=== PATIENT | female | born 1950 | race Caucasian/White ===

== ENCOUNTER 2022-02-05 09:49 | Emergency (ER) | payer MEDICARE, SELFPAY ==
[2022-02-05] VITALS (16 sets, daily range): BP systolic 127–152; BP diastolic 60–85; PULSE 89–99; RESP 17; TEMP 37.4; O2SAT 91–98; BMI 25.8
--- NOTE | 2022-02-05 10:03 | DI.RAD.S_ITS ---
PROCEDURE: XR CHEST 1V INDICATIONS: chest pain TECHNIQUE: One view of the chest was acquired. COMPARISON: [facility], CT, PE STUDY (CTA CHEST), 11/08/2016, 17:54. [facility], CR, CHEST 2 VIEW, 11/08/2016, 17:17. FINDINGS: Surgical changes and devices: None. Lungs and pleura: There is mild generalized interstitial prominence seen. No pleural effusions or pneumothorax. Mediastinum: Mediastinal contours appear normal. Heart size is normal. Bones and chest wall: No suspicious bony lesions. Age-appropriate bony degenerative changes are seen. Mild dextroconvex scoliotic curvature is seen. Overlying soft tissues appear unremarkable. IMPRESSION: Mild generalized interstitial prominence can be seen. Please consider pulmonary edema versus atypical infection. Dictated by: Mike Crockett M.D. on 02/05/2022 at 10:14 Approved by: Mike Crockett M.D. on 02/05/2022 at 10:17
[2022-02-05 10:35] LABS: Add Manual Diff / Slide Review NO; Basophils Absolute Auto 0 /uL (0-100); Basophils Percent Auto 0.2 % (0-2); Eosinophils Absolute Auto 300 /uL (0-450); Eosinophils Percent Auto 2.4 % (2-4); Hemoglobin 11.6 g/dL (12.0-16.0); Lymphocytes Absolute Auto 900 /uL (1100-4500); Lymphocytes Percent Auto 8.3 % (25-40); Mean Corpuscular HGB Conc 34.2 % (30-36); Mean Corpuscular Volume 93.6 fL (80-100); Monocytes Absolute Auto 700 /uL (0-900); Monocytes Percent Auto 6.2 % (3-14); Neutrophils Absolute Auto 9500 /uL (1500-7000); Neutrophils Percent Auto 82.9 % (50-75); Platelet Count 268 X10^3/uL (150-400); Red Blood Cell Count 3.63 X10^6/uL (4.0-5.2); Red Cell Distribution Width 13.5 % (11.6-14.8); White Blood Cell Count 11.5 X10^3/uL (4.5-11.0)
[2022-02-05 11:03] LABS: Alanine Aminotransferase 18 IU/L (<35); Albumin 3.7 g/dL (3.5-5.0); Alkaline Phosphatase 84 U/L (38-126); Aspartate Aminotransferase 26 IU/L (14-36); BUN Creatinine Ratio 18.2 (6-22); Bilirubin Total 0.8 mg/dL (0.2-1.3); Blood Urea Nitrogen 10 mg/dL (7-17); Calcium 8.5 mg/dL (8.4-10.2); Carbon Dioxide 29 mmol/L (22-32); Chloride 103 mmol/L (98-107); Creatine Kinase 57 U/L (30-135); Estimated Glomerular Filt Rate > 60 mL/min (>60); Globulin 3.6 g/dL (1.7-4.1); Glucose 158 mg/dL (80-110); Lipase 29 U/L (23-300); Potassium 3.9 mmol/L (3.4-5.1); Sodium 140 mmol/L (137-145); Total Protein 7.3 g/dL (6.3-8.2)
[2022-02-05 11:05] LABS: HEMOLYSIS 83 (0-50)
[2022-02-05 11:15] LABS: NT-proBNP (BNP-Adult 18+) 541 pg/mL (<125); Troponin I < 0.012 ng/mL (0.01-0.034)
[2022-02-05 11:19] LABS: Procalcitonin 0.15 ng/mL (<0.5)
[2022-02-05 11:23] LABS: Adenovirus Not Detected (Not Detect); B. parapertussis Not Detected (Not Detecte); Coronavirus 229E Not Detected (Not Detect); Coronavirus HKU1 Not Detected (Not Detect); Coronavirus NL 63 Not Detected (Not Detect); Coronavirus OC43 Not Detected (Not Detect); Human Metapneumovirus Not Detected (Not Detect); Human Rhinovirus/Enterovirus Not Detected (Not Detect); Influenza A Not Detected (Not Detect); Influenza B Not Detected (Not Detect); Parainfluenza Virus 1 Not Detected (Not Detect); Parainfluenza Virus 2 Not Detected (Not Detect); Parainfluenza Virus 3 Not Detected (Not Detect); Parainfluenza Virus 4 Not Detected (Not Detect); Respiratory Syncytial Virus Not Detected (Not Detect); SARS- CoV-2 Not Detected (Not Detecte)
[2022-02-05 11:24] LABS: Bordetella pertussis Not Detected (Not Detecte); Chlamydophila pneumoniae Not Detected (Not Detect); Mycoplasma pneumoniae Not Detected (Not Detect)
--- NOTE | 2022-02-05 13:06 | ED_ITS ---
HPI - SOB/Dyspnea <Geovanni Brandt PA-C - Last Filed: 02/05/22 18:19> General Chief Complaint: Shortness of Breath/Dyspnea Stated Complaint: Short of breath, Fever, night sweats Time Seen by Provider: 02/05/22 10:01 Source: patient Mode of arrival: Ambulatory Limitations: no limitations History of Present Illness HPI Narrative: Patient is a 71-year-old female who presents to the emergency room today with complaint of cough night sweats chills chest pain shortness of breath that started about 2 days ago. Admits to having a history of bronchitis bronchiectasis and pneumonia. States that her last bout of pneumonia was a few months ago and started with bronchitis and progressed to pneumonia. Her condition has progressed to where it feels almost the same at this time. States that her last pneumonia was not identified by x-ray but by court. 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 Related Data Home Medications Medication Instructions Recorded Confirmed aspirin 81 mg chewable tablet 81 mg PO QDAY ##0 11/06/16 atorvastatin 40 mg tablet (Lipitor) 40 mg PO HS ##0 11/06/16 cholecalciferol (vitamin D3) 1,250 50,000 unit PO QMONTH ##0 11/06/16 mcg (50,000 unit) capsule ezetimibe 10 mg tablet (Zetia) 10 mg PO Q DAY ##0 11/06/16 levothyroxine 112 mcg tablet 112 mcg PO QAM ##0 11/06/16 (Synthroid) telmisartan 80 mg tablet 80 mg PO QDAY ##0 11/06/16 Previous Rx's Medication Instructions Recorded promethazine 6.25 mg-codeine 10 5 - 10 ml PO Q4HP PRN #120 mL 11/06/16 mg/5 mL syrup albuterol sulfate 90 mcg/actuation 1 - 2 puff INH Q4HP PRN ##6.7 11/08/16 aerosol inhaler (Proventil HFA) codeine 10 mg-guaifenesin 100 mg/5 10 ml PO Q4-6H PRN cough #1,000 mL 02/05/22 mL oral liquid doxycycline hyclate 100 mg capsule 100 mg PO BID #10 caps 02/05/22 ondansetron 4 mg oral soluble film 4 mg PO Q8H #30 ea 02/05/22 Allergies Allergy/AdvReac Type Severity Reaction Status Date / Time codeine [CODEINE] AdvReac Unknown Nausea/Vomi Verified 02/05/22 10:01 ting. Review of Systems <Geovanni Brandt PA-C - Last Filed: 02/05/22 18:19> Review of Systems Narrative: R.O.S.: General: No fever, chills or fatigue. Cardiovascular: Cough shortness of breath night sweat sweats chills and chest pain Respiratory: Cough shortness of breath night sweats chills chest pain HEENT: No congestion, ear pain, rhinorrhea, sore throat or tinnitus Gastrointestinal: No nausea or vomiting : No urinary concerns Skin: No rash or associated abnormalities Musculoskeletal: No pain in muscles or joints, no limitation of range of motion, no paresthesia or numbness. ?? Neurological: Awake, alert and in not apparent distress. No Headaches, changes in vision or other related neurological concerns. Patient History <Geovanni Brandt PA-C - Last Filed: 02/05/22 18:19> Social History Smoking Status: Unknown if ever smoked Smoking Status: Unknown if ever smoked alcohol intake frequency: holidays/special occasions only Substance Use Type: does not use Exam <Geovanni Brandt PA-C - Last Filed: 02/05/22 18:19> Narrative Exam Narrative: Physical Exam: ? General: normal appearance, well developed, well nourished, alert, and awake. Not in acute distress. ? Head: Normocephalic, no lesions. Chest: Lungs have rhonchi in the bilateral lower lobes. Otherwise no wheezes rhonchi or crackles noted. ? Heart: RRR, no murmurs, rubs or gallops. Eyes: PERRLA, EOM's full, conjunctivae clear. ? Neuro: Physiological, no localizing findings, CN3-12 intact. ?? Extremities: Warm, well perfused, FROM, no deformities, no edema. ?? Skin: Normal, no rashes, no lesions noted. ?? PSYCHIATRIC: The mood is good, no blunted affect. Speech is clear. Thought process is linear, thought content is appropriate. The voice is without significant inflection. Gastrointestinal: Soft; NT; ND; Pos BS with Neg. rebound tenderness. No scars or major deformities noted on Visual Inspection. Initial Vital Signs Initial Vital Signs: Vital Signs Temperature 99.4 F 02/05/22 09:55 Pulse Rate 90 02/05/22 09:55 Respiratory Rate 17 02/05/22 09:55 Blood Pressure 152/73 H 02/05/22 09:55 Pulse Oximetry 96 02/05/22 09:55 Oxygen Delivery Method 02/05/22 09:55 <Sharon Leong DO - Last Filed: 02/06/22 11:05> Initial Vital Signs Initial Vital Signs: Vital Signs Temperature 99.4 F 02/05/22 09:55 Pulse Rate 90 02/05/22 09:55 Respiratory Rate 17 02/05/22 09:55 Blood Pressure 152/73 H 02/05/22 09:55 Pulse Oximetry 96 02/05/22 09:55 Oxygen Delivery Method 02/05/22 09:55 Course <Geovanni Brandt PA-C - Last Filed: 02/05/22 18:19> Orders Ordered: Discontinued Medications Benzonatate (Benzonatate 100 Mg Capsule) 100 mg PO NOW ONE Stop: 02/05/22 17:07 Last Admin: 02/05/22 17:53 Dose: Not Given Documented By: NR Codeine Sulfate (Codeine 30 Mg Tablet) 15 mg PO NOW ONE Stop: 02/05/22 17:16 Last Admin: 02/05/22 17:50 Dose: 15 mg Documented By: NR Sodium Chloride (Normal Saline 0.9%) 1,000 mls @ 1,000 mls/hr IV BOLUS ONE Stop: 02/05/22 14:27 Last Infusion: 02/05/22 15:46 Dose: 0 mls/hr Documented By: Admin: 02/05/22 13:35 Dose: 1,000 mls/hr Documented By: NR Ondansetron HCl (Ondansetron 8 Mg Tablet) 8 mg PO NOW ONE Stop: 02/05/22 17:16 Last Admin: 02/05/22 17:53 Dose: Not Given Documented By: PILLO Ondansetron HCl (Ondansetron 4 Mg Odt) 8 mg SL NOW ONE Stop: 02/05/22 17:36 Last Admin: 02/05/22 17:40 Dose: 8 mg Documented By: NR Vital Signs Vital signs: Vital Signs - 8 hr 02/05/22 09:55 02/05/22 09:58 02/05/22 10:00 Temperature 99.4 F Pulse Rate 90 99 H 93 H Respiratory Rate 17 Blood Pressure 152/73 H Pulse Oximetry 96 97 98 Oxygen Delivery Method Room Air 02/05/22 10:13 02/05/22 10:13 02/05/22 10:30 Temperature Pulse Rate 92 H Respiratory Rate Blood Pressure 142/64 H 127/60 Pulse Oximetry 98 Oxygen Delivery Method 02/05/22 10:30 02/05/22 11:00 02/05/22 11:00 Temperature Pulse Rate 90 89 Respiratory Rate Blood Pressure 141/72 H Pulse Oximetry 96 94 Oxygen Delivery Method 02/05/22 11:30 02/05/22 11:31 02/05/22 11:31 Temperature Pulse Rate 90 91 H Respiratory Rate Blood Pressure 142/68 H Pulse Oximetry 95 95 Oxygen Delivery Method 02/05/22 12:00 02/05/22 12:00 02/05/22 12:30 Temperature Pulse Rate 92 H Respiratory Rate Blood Pressure 132/85 143/73 H Pulse Oximetry 94 Oxygen Delivery Method 02/05/22 12:30 02/05/22 13:00 02/05/22 13:00 Temperature Pulse Rate 94 H 91 H Respiratory Rate Blood Pressure 149/68 H Pulse Oximetry 93 94 Oxygen Delivery Method 02/05/22 13:30 02/05/22 13:30 02/05/22 15:28 Temperature Pulse Rate 90 94 H Respiratory Rate Blood Pressure 148/73 H 137/63 Pulse Oximetry 95 94 Oxygen Delivery Method Room Air <Sharon Leong DO - Last Filed: 02/06/22 11:05> Orders Ordered: Discontinued Medications Benzonatate (Benzonatate 100 Mg Capsule) 100 mg PO NOW ONE Stop: 02/05/22 17:07 Last Admin: 02/05/22 17:53 Dose: Not Given Documented By: NR Codeine Sulfate (Codeine 30 Mg Tablet) 15 mg PO NOW ONE Stop: 02/05/22 17:16 Last Admin: 02/05/22 17:50 Dose: 15 mg Documented By: NR Sodium Chloride (Normal Saline 0.9%) 1,000 mls @ 1,000 mls/hr IV BOLUS ONE Stop: 02/05/22 14:27 Last Infusion: 02/05/22 15:46 Dose: 0 mls/hr Documented By: Admin: 02/05/22 13:35 Dose: 1,000 mls/hr Documented By: PILLO Ondansetron HCl (Ondansetron 8 Mg Tablet) 8 mg PO NOW ONE Stop: 02/05/22 17:16 Last Admin: 02/05/22 17:53 Dose: Not Given Documented By: PILLO Ondansetron HCl (Ondansetron 4 Mg Odt) 8 mg SL NOW ONE Stop: 02/05/22 17:36 Last Admin: 02/05/22 17:40 Dose: 8 mg Documented By: PILLO Vital Signs Vital signs: Vital Signs - 8 hr 02/05/22 09:55 02/05/22 09:58 02/05/22 10:00 Temperature 99.4 F Pulse Rate 90 99 H 93 H Respiratory Rate 17 Blood Pressure 152/73 H Pulse Oximetry 96 97 98 Oxygen Delivery Method Room Air 02/05/22 10:13 02/05/22 10:13 02/05/22 10:30 Temperature Pulse Rate 92 H Respiratory Rate Blood Pressure 142/64 H 127/60 Pulse Oximetry 98 Oxygen Delivery Method 02/05/22 10:30 02/05/22 11:00 02/05/22 11:00 Temperature Pulse Rate 90 89 Respiratory Rate Blood Pressure 141/72 H Pulse Oximetry 96 94 Oxygen Delivery Method 02/05/22 11:30 02/05/22 11:31 02/05/22 11:31 Temperature Pulse Rate 90 91 H Respiratory Rate Blood Pressure 142/68 H Pulse Oximetry 95 95 Oxygen Delivery Method 02/05/22 12:00 02/05/22 12:00 02/05/22 12:30 Temperature Pulse Rate 92 H Respiratory Rate Blood Pressure 132/85 143/73 H Pulse Oximetry 94 Oxygen Delivery Method 02/05/22 12:30 02/05/22 13:00 02/05/22 13:00 Temperature Pulse Rate 94 H 91 H Respiratory Rate Blood Pressure 149/68 H Pulse Oximetry 93 94 Oxygen Delivery Method 02/05/22 13:30 02/05/22 13:30 02/05/22 15:28 Temperature Pulse Rate 90 94 H Respiratory Rate Blood Pressure 148/73 H 137/63 Pulse Oximetry 95 94 Oxygen Delivery Method Room Air MDM - SOB/Dyspnea <Geovanni Brandt PA-C - Last Filed: 02/05/22 18:19> Lab Data Result diagrams: 02/05/22 10:20 02/05/22 10:20 Labs: Lab Results 02/05/22 02/05/22 02/05/22 Range/Units 09:57 10:20 10:20 WBC 11.5 H (4.5-11.0) X10^3/uL RBC 3.63 L (4.0-5.2) X10^6/uL Hgb 11.6 L (12.0-16.0) g/dL Hct 34.0 L (36-46) % MCV 93.6 (80-100) fL MCH 32.0 (26-34) PG MCHC 34.2 (30-36) % RDW 13.5 (11.6-14.8) % Plt Count 268 (150-400) X10^3/uL Neut % (Auto) 82.9 H (50-75) % Lymph % (Auto) 8.3 L (25-40) % Ashe % (Auto) 6.2 (3-14) % Eos % (Auto) 2.4 (2-4) % Baso % (Auto) 0.2 (0-2) % Neut # (Auto) 9500 H (4666-6110) /uL Lymph # (Auto) 900 L (6132-9670) /uL Ashe # (Auto) 700 (0-900) /uL Eos # (Auto) 300 (0-450) /uL Baso # (Auto) 0 (0-100) /uL Sodium 140 (137-145) mmol/L Potassium 3.9 (3.4-5.1) mmol/L Chloride 103 (98-107) mmol/L Carbon Dioxide 29 (22-32) mmol/L BUN 10 (7-17) mg/dL Creatinine 0.55 (0.52-1.04) mg/dL Estimated GFR > 60 (>60) mL/min BUN/Creatinine Ratio 18.2 (6-22) Glucose 158 H (80-110) mg/dL Calcium 8.5 (8.4-10.2) mg/dL Total Bilirubin 0.8 (0.2-1.3) mg/dL AST 26 (14-36) IU/L ALT 18 (<35) IU/L Alkaline Phosphatase 84 (38-126) U/L Total Creatine Kinase 57 (30-135) U/L CK-MB (CK-2) TNP CK-MB (CK-2) Rel Index TNP Troponin I < 0.012 (0.01-0.034) ng/mL NT-Pro-B Natriuret Pep 541 H (<125) pg/mL Total Protein 7.3 (6.3-8.2) g/dL Albumin 3.7 (3.5-5.0) g/dL Globulin 3.6 (1.7-4.1) g/dL Albumin/Globulin Ratio 1.0 (1.0-2.8) Lipase 29 (23-300) U/L Procalcitonin 0.15 (<0.5) ng/mL Urine RBC (0-5/HPF) Urine WBC (0-5/HPF) Ur Squamous Epith Cells (0-5/HPF) Ur Transition Epith Cell (0-5/HPF) Urine Bacteria (None) Urine Mucus (Negative) Ur Culture Indicated? Chlamy pneumoniae PCR Not detected (Not Detect) Adenovirus (PCR) Not detected (Not Detect) B. pertussis DNA (PCR) Not detected (Not Detecte) B.parapertussis DNA PCR Not detected (Not Detecte) Coronavirus OC43 (PCR) Not detected (Not Detect) Coronavirus HKU1 (PCR) Not detected (Not Detect) Coronavirus 229E (PCR) Not detected (Not Detect) SARS-CoV-2 (PCR) Not detected (Not Detecte) Coronavirus NL63 (PCR) Not detected (Not Detect) Human Metapneumovir PCR Not detected (Not Detect) Influenza Type A (PCR) Not detected (Not Detect) Influenza Type B (PCR) Not detected (Not Detect) M. pneumoniae (PCR) Not detected (Not Detect) Parainfluenza 1 (PCR) Not detected (Not Detect) Parainfluenza 2 (PCR) Not detected (Not Detect) Parainfluenza 3 (PCR) Not detected (Not Detect) Parainfluenza 4 (PCR) Not detected (Not Detect) RSV (PCR) Not detected (Not Detect) Entero/Rhino (PCR) Not detected (Not Detect) 02/05/22 02/05/22 Range/Units 13:43 14:23 WBC (4.5-11.0) X10^3/uL RBC (4.0-5.2) X10^6/uL Hgb (12.0-16.0) g/dL Hct (36-46) % MCV (80-100) fL MCH (26-34) PG MCHC (30-36) % RDW (11.6-14.8) % Plt Count (150-400) X10^3/uL Neut % (Auto) (50-75) % Lymph % (Auto) (25-40) % Ashe % (Auto) (3-14) % Eos % (Auto) (2-4) % Baso % (Auto) (0-2) % Neut # (Auto) (5049-3894) /uL Lymph # (Auto) (7236-5396) /uL Ashe # (Auto) (0-900) /uL Eos # (Auto) (0-450) /uL Baso # (Auto) (0-100) /uL Sodium (137-145) mmol/L Potassium (3.4-5.1) mmol/L Chloride (98-107) mmol/L Carbon Dioxide (22-32) mmol/L BUN (7-17) mg/dL Creatinine (0.52-1.04) mg/dL Estimated GFR (>60) mL/min BUN/Creatinine Ratio (6-22) Glucose (80-110) mg/dL Calcium (8.4-10.2) mg/dL Total Bilirubin (0.2-1.3) mg/dL AST (14-36) IU/L ALT (<35) IU/L Alkaline Phosphatase (38-126) U/L Total Creatine Kinase 49 (30-135) U/L CK-MB (CK-2) TNP CK-MB (CK-2) Rel Index TNP Troponin I < 0.012 (0.01-0.034) ng/mL NT-Pro-B Natriuret Pep (<125) pg/mL Total Protein (6.3-8.2) g/dL Albumin (3.5-5.0) g/dL Globulin (1.7-4.1) g/dL Albumin/Globulin Ratio (1.0-2.8) Lipase (23-300) U/L Procalcitonin (<0.5) ng/mL Urine RBC 1-5/hpf (0-5/HPF) Urine WBC 1-5/hpf (0-5/HPF) Ur Squamous Epith Cells 1-5 /hpf (0-5/HPF) Ur Transition Epith Cell 1-5/hpf (0-5/HPF) Urine Bacteria Occasional (0-1) (None) Urine Mucus 2+ H (Negative) Ur Culture Indicated? Cult not indicated Chlamy pneumoniae PCR (Not Detect) Adenovirus (PCR) (Not Detect) B. pertussis DNA (PCR) (Not Detecte) B.parapertussis DNA PCR (Not Detecte) Coronavirus OC43 (PCR) (Not Detect) Coronavirus HKU1 (PCR) (Not Detect) Coronavirus 229E (PCR) (Not Detect) SARS-CoV-2 (PCR) (Not Detecte) Coronavirus NL63 (PCR) (Not Detect) Human Metapneumovir PCR (Not Detect) Influenza Type A (PCR) (Not Detect) Influenza Type B (PCR) (Not Detect) M. pneumoniae (PCR) (Not Detect) Parainfluenza 1 (PCR) (Not Detect) Parainfluenza 2 (PCR) (Not Detect) Parainfluenza 3 (PCR) (Not Detect) Parainfluenza 4 (PCR) (Not Detect) RSV (PCR) (Not Detect) Entero/Rhino (PCR) (Not Detect) Urine Dip Bedside Urine Glucose Negative Bedside Urine Bilirubin - Negative Bedside Urine Ketone - Negative Urine Specific Lux[place] 1.010 Bedside Urine Occult Blood - Negative Bedside Urine pH 7.5 Bedside Urine Protein + 30 Bedside Urine Urobilinogen - Negative Bedside Urine Nitrite - Negative Bedside Urine Leukocytes - Negative Esterase Imaging Data Chest x-ray: Radiologist's Impression: [address] [address] XRay Report Signed Patient: Randi Hatfield MR#: [id number] : 1950 Acct:[id number] Age/Sex: 71 / F Date of Service: 02/05/22 Loc: ED Accession Number: [id number] ?? Procedure: XR chest 1V Ordering Provider: Sharon Leong D.O. PROCEDURE:? XR CHEST 1V ? INDICATIONS:? chest pain ? TECHNIQUE:? One view of the chest was acquired.? ? COMPARISON:? [facility], CT, PE STUDY (CTA CHEST), 11/08/2016, 17:54.? [facility], CR, CHEST 2 VIEW, 11/08/2016, 17:17. ? FINDINGS:? ? Surgical changes and devices:? None.? ? Lungs and pleura:? There is mild generalized interstitial prominence seen.? No pleural effusions or pneumothorax.? ? Mediastinum:? Mediastinal contours appear normal.? Heart size is normal.? ? Bones and chest wall:? No suspicious bony lesions.? Age-appropriate bony degenerative changes are seen.? Mild dextroconvex scoliotic curvature is seen.? ? Overlying soft tissues appear unremarkable.? ? ? IMPRESSION:? Mild generalized interstitial prominence can be seen.? Please consider pulmonary edema versus atypical infection. ? ? Dictated by: Mike Crockett M.D. on 02/05/2022 at 10:14 ? ? Approved by: Mike Crockett M.D. on 02/05/2022 at 10:17 ? CT scan - chest: Radiologist's Impression: [place] [address] CT Scan Report Signed Patient: Randi Hatfield MR#: [id number] : 1950 Acct:[id number] Age/Sex: 71 / F Date of Service: 02/05/22 Loc: Accession Number: [id number] ?? Procedure: CT chest w con Ordering Provider: Geovanni Brandt P.A-C PROCEDURE:? CT CHEST W CON ? INDICATIONS:? Chest pain and shortness of breath ? TECHNIQUE:? After the administration of intravenous contrast, 5 mm thick sections acquired from the pulmonary apices to the posterior costophrenic angles.? 1 mm axial lung, 5 mm thick coronal and sagittal reformats and 7 mm axial MIP were acquired.? For radiation dose reduction, the following was used:? automated exposure control, adjustment of mA and/or kV according to patient size.? ? COMPARISON:? [facility], CT, PE STUDY (CTA CHEST), 11/08/2016, 17:54.? [facility], CR, XR CHEST 1V, 02/05/2022, 10:56. ? FINDINGS:? Image quality:? Excellent.? ? Lungs and pleura:? Patchy irregular consolidative and ground-glass opacities are present, many of which are similar in appearance to the previous exam.? Some irregular opacities present previously have resolved in the interval.? On the current study there are diffuse patchy groups of centrilobular predominant nodules present in both lungs.? No pleural effusion or pneumothorax. ? Mediastinum:? No pericardial effusion.? Multivessel coronary artery calcifications and/or stents.? Mediastinal and hilar adenopathy is present as before.? For example a 1.7 centimeter right hilar lymph node on series 3, image 131 Thoracic aorta and central pulmonary arteries are normal in size.? Esophagus is normal in caliber. ? Bones and chest wall:? No suspicious bony lesions.? ? No vertebral body compression fractures.? No axillary or supraclavicular adenopathy by size criteria.? ? Abdomen:? Visualized upper abdominal solid organs appear normal.? Upper abdominal bowel loops are normal in caliber.? ? IMPRESSION:? Multifocal pulmonary opacities are present, some of which are similar in appearance to the 2017 comparison exam.? However, there are multiple opacities, predominantly pulmonary micronodules, which are new since before.? Overall findings are nonspecific but suggestive of infectious/inflammatory etiology.? Could consider multifocal infection such as infectious bronchiolitis or bronchopneumonia.? Other potential etiologies such as hypersensitivity pneumonitis could also be considered.? Sarcoidosis can also result in present findings of pulmonary nodules and mediastinal/hilar adenopathy but this is considered less likely given distribution of pulmonary nodules and patient age. Other etiologies are not excluded.? Pulmonology consultation might be helpful to direct further management. ? ? Dictated by: Mynor Cevallos M.D. on 02/05/2022 at 14:07 ? ? Approved by: Mynor Cevallos M.D. on 02/05/2022 at 14:20 ? ECG Data Interpretation: EKG has normal sinus rhythm with occasional PVCs and nonspecific T-wave abnormality. No obvious left bundle-branch block ST segment elevation or Q-wave morphology. [facility] Narrative Medical decision making narrative: Patient is a 71-year-old female presents to the emergency room with complaint of upper respiratory symptoms similar to those that were normal she is had in the past. Chest film done here was not definitive but suspect an atypical lung infection. CT of the chest with contrast was ordered or more definitive diagnosis. Considerations were significance of infection and possible IV versus oral antibiotics. CT scan revealed multiple opacities predominantly pulmonary micro nodules that are suggestive of infectious etiology. Also suggested pulmonary consultation. Calls were put in for pulmonary pulmonary consultation at [facility]. No call back was receive then pulmonary consultation put in her review. Transfer center called back and stated a pulmonary consultations are being done at this time. After few hours I heard back from [facility] and talked to Dr. AMBROSE who listened to my report and informed me that he will not give me consultation after a 5 minute consult. He states it has used my clinical judgment. Had a follow-up conversation with the patient and further evaluated the patient's current medical progression. Patient's main complaint now is of cough plan is to the patient on Zofran and codeine per patient's complaint nausea with codeine. The patient tolerates this patient will be discharged on oral antibiotics with strict instructions on concerns and to return should any of those concerns arise. Patient agrees with this plan <Sharon Leong, - Last Filed: 02/06/22 11:05> Lab Data Labs: Lab Results 02/05/22 02/05/22 02/05/22 Range/Units 09:57 10:20 10:20 WBC 11.5 H (4.5-11.0) X10^3/uL RBC 3.63 L (4.0-5.2) X10^6/uL Hgb 11.6 L (12.0-16.0) g/dL Hct 34.0 L (36-46) % MCV 93.6 (80-100) fL MCH 32.0 (26-34) PG MCHC 34.2 (30-36) % RDW 13.5 (11.6-14.8) % Plt Count 268 (150-400) X10^3/uL Neut % (Auto) 82.9 H (50-75) % Lymph % (Auto) 8.3 L (25-40) % Ashe % (Auto) 6.2 (3-14) % Eos % (Auto) 2.4 (2-4) % Baso % (Auto) 0.2 (0-2) % Neut # (Auto) 9500 H (6051-6108) /uL Lymph # (Auto) 900 L (9298-1952) /uL Ashe # (Auto) 700 (0-900) /uL Eos # (Auto) 300 (0-450) /uL Baso # (Auto) 0 (0-100) /uL Sodium 140 (137-145) mmol/L Potassium 3.9 (3.4-5.1) mmol/L Chloride 103 (98-107) mmol/L Carbon Dioxide 29 (22-32) mmol/L BUN 10 (7-17) mg/dL Creatinine 0.55 (0.52-1.04) mg/dL Estimated GFR > 60 (>60) mL/min BUN/Creatinine Ratio 18.2 (6-22) Glucose 158 H (80-110) mg/dL Calcium 8.5 (8.4-10.2) mg/dL Total Bilirubin 0.8 (0.2-1.3) mg/dL AST 26 (14-36) IU/L ALT 18 (<35) IU/L Alkaline Phosphatase 84 (38-126) U/L Total Creatine Kinase 57 (30-135) U/L CK-MB (CK-2) TNP CK-MB (CK-2) Rel Index TNP Troponin I < 0.012 (0.01-0.034) ng/mL NT-Pro-B Natriuret Pep 541 H (<125) pg/mL Total Protein 7.3 (6.3-8.2) g/dL Albumin 3.7 (3.5-5.0) g/dL Globulin 3.6 (1.7-4.1) g/dL Albumin/Globulin Ratio 1.0 (1.0-2.8) Lipase 29 (23-300) U/L Procalcitonin 0.15 (<0.5) ng/mL Urine RBC (0-5/HPF) Urine WBC (0-5/HPF) Ur Squamous Epith Cells (0-5/HPF) Ur Transition Epith Cell (0-5/HPF) Urine Bacteria (None) Urine Mucus (Negative) Ur Culture Indicated? Chlamy pneumoniae PCR Not detected (Not Detect) Adenovirus (PCR) Not detected (Not Detect) B. pertussis DNA (PCR) Not detected (Not Detecte) B.parapertussis DNA PCR Not detected (Not Detecte) Coronavirus OC43 (PCR) Not detected (Not Detect) Coronavirus HKU1 (PCR) Not detected (Not Detect) Coronavirus 229E (PCR) Not detected (Not Detect) SARS-CoV-2 (PCR) Not detected (Not Detecte) Coronavirus NL63 (PCR) Not detected (Not Detect) Human Metapneumovir PCR Not detected (Not Detect) Influenza Type A (PCR) Not detected (Not Detect) Influenza Type B (PCR) Not detected (Not Detect) M. pneumoniae (PCR) Not detected (Not Detect) Parainfluenza 1 (PCR) Not detected (Not Detect) Parainfluenza 2 (PCR) Not detected (Not Detect) Parainfluenza 3 (PCR) Not detected (Not Detect) Parainfluenza 4 (PCR) Not detected (Not Detect) RSV (PCR) Not detected (Not Detect) Entero/Rhino (PCR) Not detected (Not Detect) 02/05/22 02/05/22 Range/Units 13:43 14:23 WBC (4.5-11.0) X10^3/uL RBC (4.0-5.2) X10^6/uL Hgb (12.0-16.0) g/dL Hct (36-46) % MCV (80-100) fL MCH (26-34) PG MCHC (30-36) % RDW (11.6-14.8) % Plt Count (150-400) X10^3/uL Neut % (Auto) (50-75) % Lymph % (Auto) (25-40) % Ashe % (Auto) (3-14) % Eos % (Auto) (2-4) % Baso % (Auto) (0-2) % Neut # (Auto) (4029-9727) /uL Lymph # (Auto) (3523-9311) /uL Ashe # (Auto) (0-900) /uL Eos # (Auto) (0-450) /uL Baso # (Auto) (0-100) /uL Sodium (137-145) mmol/L Potassium (3.4-5.1) mmol/L Chloride (98-107) mmol/L Carbon Dioxide (22-32) mmol/L BUN (7-17) mg/dL Creatinine (0.52-1.04) mg/dL Estimated GFR (>60) mL/min BUN/Creatinine Ratio (6-22) Glucose (80-110) mg/dL Calcium (8.4-10.2) mg/dL Total Bilirubin (0.2-1.3) mg/dL AST (14-36) IU/L ALT (<35) IU/L Alkaline Phosphatase (38-126) U/L Total Creatine Kinase 49 (30-135) U/L CK-MB (CK-2) TNP CK-MB (CK-2) Rel Index TNP Troponin I < 0.012 (0.01-0.034) ng/mL NT-Pro-B Natriuret Pep (<125) pg/mL Total Protein (6.3-8.2) g/dL Albumin (3.5-5.0) g/dL Globulin (1.7-4.1) g/dL Albumin/Globulin Ratio (1.0-2.8) Lipase (23-300) U/L Procalcitonin (<0.5) ng/mL Urine RBC 1-5/hpf (0-5/HPF) Urine WBC 1-5/hpf (0-5/HPF) Ur Squamous Epith Cells 1-5 /hpf (0-5/HPF) Ur Transition Epith Cell 1-5/hpf (0-5/HPF) Urine Bacteria Occasional (0-1) (None) Urine Mucus 2+ H (Negative) Ur Culture Indicated? Cult not indicated Chlamy pneumoniae PCR (Not Detect) Adenovirus (PCR) (Not Detect) B. pertussis DNA (PCR) (Not Detecte) B.parapertussis DNA PCR (Not Detecte) Coronavirus OC43 (PCR) (Not Detect) Coronavirus HKU1 (PCR) (Not Detect) Coronavirus 229E (PCR) (Not Detect) SARS-CoV-2 (PCR) (Not Detecte) Coronavirus NL63 (PCR) (Not Detect) Human Metapneumovir PCR (Not Detect) Influenza Type A (PCR) (Not Detect) Influenza Type B (PCR) (Not Detect) M. pneumoniae (PCR) (Not Detect) Parainfluenza 1 (PCR) (Not Detect) Parainfluenza 2 (PCR) (Not Detect) Parainfluenza 3 (PCR) (Not Detect) Parainfluenza 4 (PCR) (Not Detect) RSV (PCR) (Not Detect) Entero/Rhino (PCR) (Not Detect) Urine Dip Bedside Urine Glucose Negative Bedside Urine Bilirubin - Negative Bedside Urine Ketone - Negative Urine Specific Luxor 1.010 Bedside Urine Occult Blood - Negative Bedside Urine pH 7.5 Bedside Urine Protein + 30 Bedside Urine Urobilinogen - Negative Bedside Urine Nitrite - Negative Bedside Urine Leukocytes - Negative Esterase Discharge Plan Departure Patient Disposition: Home Clinical Impression: Atypical pneumonia, Cough Instructions: DI for Cough -- Adult, DI for Atypical Pneumonia Activity Restrictions/Additional Instructions: *You have been diagnosed with cough and atypical pneumonia. I have ordered medications for your cough and antibiotics for your atypical pneumonia. I have also ordered medications to help with your nausea. [ ] *What to do: *Please continue to take your regular medications as directed. [ ] New medication prescriptions sent to your pharmacy: [ ] [ ] New medication written as a paper prescription [ ] No new medications given *Please follow up with your primary care provider in 2-3 days, call for an appointment. Let them know you were seen in the Emergency Department and that we ask that you be seen in follow up. We will electronically transmit a record of today's note if your PCP is in our system *If you do not have a primary care provider please contact the [facility] Resource line at [phone]. They will ask some questions about your medical history and help get you set up with a doctor in the community. *Return to Emergency Department if you should have any new, worsening or concerning symptoms, such as [fever greater than 101 F, shaking chills, worsening pain, persistent vomiting or other bothersome symptoms] Prescriptions: New doxycycline hyclate 100 mg capsule 100 mg PO BID Qty: 10 0RF codeine-guaifenesin 10-100 mg/5 mL liquid 10 ml PO Q4-6H PRN (Reason: cough) Qty: 1000 0RF ondansetron 4 mg film 4 mg PO Q8H Qty: 30 0RF No Action atorvastatin [Lipitor] 40 MG tablet 40 mg PO HS Qty: 0 telmisartan 80 MG tablet 80 mg PO QDAY Qty: 0 levothyroxine [Synthroid] 112 MCG tablet 112 mcg PO QAM Qty: 0 ezetimibe [Zetia] 10 MG tablet 10 mg PO Q DAY Qty: 0 aspirin 81 MG tablet,chewable 81 mg PO QDAY Qty: 0 cholecalciferol (vitamin D3) 50,000 UNIT capsule 50,000 unit PO QMONTH Qty: 0 promethazine-codeine 6.25 MG/10 MG syrup 5 - 10 ml PO Q4HP PRNQty: 120 0RF albuterol sulfate [Proventil HFA] 90 MCG/PUFF HFA aerosol inhaler 1 - 2 puff INH Q4HP PRNQty: 6.7 0RF Visit Report Forms: Patient Portal/API <Sharon Leong, - Last Filed: 02/06/22 11:05> Cosign ED Attending Eloise Attestation: I was immediately available in the department for consultation. Documentation has been reviewed. Case was discussed imaging was reviewed suspect patient has chronic pulmonary issues she is appropriate for discharge but did not have follow-up with primary care or pulmonology so attempted to help with this with a consult with pulmonology and [place] where she lives. This was not particularly fruitful and they did not give much in terms of recommendations. Plan for oral antibiotic, patient does have family in [place] that may be helpful in getting her established.
--- NOTE | 2022-02-05 13:28 | DI.CT.S_ITS ---
PROCEDURE: CT CHEST W CON INDICATIONS: Chest pain and shortness of breath TECHNIQUE: After the administration of intravenous contrast, 5 mm thick sections acquired from the pulmonary apices to the posterior costophrenic angles. 1 mm axial lung, 5 mm thick coronal and sagittal reformats and 7 mm axial MIP were acquired. For radiation dose reduction, the following was used: automated exposure control, adjustment of mA and/or kV according to patient size. COMPARISON: [facility], CT, PE STUDY (CTA CHEST), 11/08/2016, 17:54. [facility], CR, XR CHEST 1V, 02/05/2022, 10:56. FINDINGS: Image quality: Excellent. Lungs and pleura: Patchy irregular consolidative and ground-glass opacities are present, many of which are similar in appearance to the previous exam. Some irregular opacities present previously have resolved in the interval. On the current study there are diffuse patchy groups of centrilobular predominant nodules present in both lungs. No pleural effusion or pneumothorax. Mediastinum: No pericardial effusion. Multivessel coronary artery calcifications and/or stents. Mediastinal and hilar adenopathy is present as before. For example a 1.7 centimeter right hilar lymph node on series 3, image 131 Thoracic aorta and central pulmonary arteries are normal in size. Esophagus is normal in caliber. Bones and chest wall: No suspicious bony lesions. No vertebral body compression fractures. No axillary or supraclavicular adenopathy by size criteria. Abdomen: Visualized upper abdominal solid organs appear normal. Upper abdominal bowel loops are normal in caliber. IMPRESSION: Multifocal pulmonary opacities are present, some of which are similar in appearance to the 2017 comparison exam. However, there are multiple opacities, predominantly pulmonary micronodules, which are new since before. Overall findings are nonspecific but suggestive of infectious/inflammatory etiology. Could consider multifocal infection such as infectious bronchiolitis or bronchopneumonia. Other potential etiologies such as hypersensitivity pneumonitis could also be considered. Sarcoidosis can also result in present findings of pulmonary nodules and mediastinal/hilar adenopathy but this is considered less likely given distribution of pulmonary nodules and patient age. Other etiologies are not excluded. Pulmonology consultation might be helpful to direct further management. Dictated by: Mynor Cevallos M.D. on 02/05/2022 at 14:07 Approved by: Mynor Cevallos M.D. on 02/05/2022 at 14:20
[2022-02-05] MEDS: SODIUM CHLORIDE 0.9% 1,000 ML 1000 ML IV (13:35)
[2022-02-05 14:00] LABS: Creatine Kinase 49 U/L (30-135)
[2022-02-05 14:13] LABS: Troponin I < 0.012 ng/mL (0.01-0.034)
[2022-02-05 15:41] LABS: Bacteria Urine Occasional (0-1); Culture Indicated Urine Cult Not Indicated; Mucus Urine 2+ (Negative); RBC Urine 1-5/HPF (0-5/HPF); Squamous Epithelial Cell Urine 1-5 /HPF (0-5/HPF); Transitional Epi Cells Urine 1-5/HPF (0-5/HPF); WBC Urine 1-5/HPF (0-5/HPF)
[2022-02-05] MEDS: ONDANSETRON 4 MG ODT 8 MG SL (17:40)
[2022-02-05] MEDS: CODEINE 30 MG TABLET 15 MG PO (17:50)
--- NOTE | 2022-02-05 17:50 | PC.NURSE ---
wasted 15mg (half a tablet) codiene tablet with Madina roman RN. See waste list in med room.
== END 2022-02-05 18:32 | disposition home or self-care (01) ==
PROVIDERS: Emergency Medicine; Emergency Provider Physician Assistant
DX: J18.9 Pneumonia, unspecified organism (principal); R07.9 Chest pain, unspecified; R05.9 Cough, unspecified; Z20.822 Contact with and (suspected) exposure to COVID-19
CPT/HCPCS: 36415; 71045; 71260; 80053; 81003; 81015; 82550; 83690; 83880; 84145; 84484; 85025; 87633; 93005; 93010; 99284; Q9967

== ENCOUNTER → 2023-05-22 12:32 | Outpatient (CLI) | payer MEDICARE, SELFPAY ==
--- NOTE | 2023-05-22 12:35 | DI.RAD.S_ITS ---
PROCEDURE: XR ANKLE RT MIN 3V INDICATIONS: Right ankle strain TECHNIQUE: 3 views of the ankle were acquired. COMPARISON: None. FINDINGS: Bones: No fractures or dislocations. Ankle mortise is normally aligned. Moderate osteoarthritic changes are noted throughout midfoot and hindfoot joints most notably involving 5th TMT joint and talonavicular joint. Well-defined plantar calcaneal enthesophyte is seen. No suspicious bony lesions. Soft tissues: No tibiotalar joint effusion. Achilles tendon appears normal. IMPRESSION: Moderate midfoot and hindfoot joint osteoarthritis. Well-defined plantar calcaneal enthesophyte. No acute ankle fracture or dislocation. Ankle mortise is congruent. Dictated by: Jerome Andre M.D. on 05/22/2023 at 15:39 Approved by: Jerome Andre M.D. on 05/22/2023 at 15:40
--- NOTE | 2023-05-22 12:35 | DI.RAD.S_ITS ---
PROCEDURE: XR FOOT RT MIN 3V INDICATIONS: Right foot contusion TECHNIQUE: 3 views of the foot were acquired. COMPARISON: None. FINDINGS: Bones: No fractures or dislocations. Moderate osteoarthritic changes are noted throughout right foot more notably involving TMT joints and 1st MTP joint. Well-defined plantar calcaneal enthesophyte is seen. No suspicious bony lesions. Soft tissues: No tibiotalar joint effusion. Achilles tendon appears normal. IMPRESSION: Moderate right foot osteoarthritis as above. No acute fracture or dislocation. Plantar calcaneal enthesophyte. Dictated by: Jerome Andre M.D. on 05/22/2023 at 15:38 Approved by: Jerome Andre M.D. on 05/22/2023 at 15:39
== END ==
PROVIDERS: Family Provider General Practice; PCP General Practice; Referring Provider Nurse Practitioner Family; Visit Provider Nurse Practitioner Family
DX: M19.071 Primary osteoarthritis, right ankle and foot (principal); M77.31 Calcaneal spur, right foot; M25.571 Pain in right ankle and joints of right foot
CPT/HCPCS: 73610; 73630

== ENCOUNTER 2023-07-28 09:45 | Outpatient (RCR) | payer MEDICARE, SELFPAY ==
--- NOTE | 2023-07-05 10:30 | PT.OPPOC ---
Physical, Occupational & Speech Therapy At [facility] Current Diagnoses Other chronic pain (07/05/23) Other intervertebral disc degeneration, lumbar region (07/05/23) Radiculopathy, lumbar region (07/05/23) Lumbago with sciatica, right side (07/05/23) Visit Care Team Role Provider Type Other Providers Specialty: Address: Phone: Fax: Email: Umair Flynn DO Family Provider Non-Staff Primary Care Provider Specialty: Family Practice Address: [address] [place] [address], [id number] Email: Guillermo Mariee DO Attending Provider Non-Staff Referring Provider Specialty: [facility] Address: [address] [place] [address], [id number] Email: Plan Of Care PT-OP-T Assessment and Plan Start: 07/05/23 11:49 Freq: Status: Active Protocol: Document 07/05/23 09:45 DCW (Rec: 07/06/23 15:24 DCW [id number]) Physical Therapy Assessment Rehab Potential Rehabilitation Potential Good Evaluation Complexity Number of Personal Factors/Comorbidities 1-2 Number of Body Systems Impaired 1-2 Clinical Presentation at Evaluation Stable Impairments Impairments Activity Tolerance,Functional Activities,Functional Mobility ,Pain,Posture,Strength,Tone Goals Two Impairment Pt unable to tolerate sitting or standing longer than 30' at a time Custodial Goal (LTG) Pt to report ability to stand for one hour without an increase in back or left LE pain in order to return to prior functional levels. LTG Duration 09/04/23 One Impairment Pt does not have an appropriate home exercise program Short Term Goal (STG) Pt to be independent and compliant with an appropriate HEP STG Duration 08/05/23 Assessment Summary Assessment Pt presents with signs and symptoms consistent with referring diagnosis. Pt symptoms likely a product of degenerative changes in lumbar history, consistent with history of osteophytes in her interveterbral discs. Does exhibit increased tone and tenderness along lumbar paraspinals, as well as left- sided piriformis, TFL/ITB, hip flexors, and QL. Pt would likely benefit from skilled therapy focusing on improving hip, lumbar, and core musculature strength, improving muscle tone and flexibility, pain-control modalities, and improving pain -free lumbar ROM. Good initial response to stretching HEP, will likely do well with progression to strengthening and training with functional mobility. Physical Therapy Plan Frequency and Duration Frequency of Treatment 2x/Week Plan of Care Start Date 07/05/23 Plan of Care End Date 09/04/23 Therapeutic Interventions Therapeutic Interventions Home Exercise Program,Joint Mobilizations,Manual Therapy, Neuromuscular Re-education, Patient/Caregiver Education, Self-Care/Home Management,Soft Tissue Mobilization, Therapeutic Activities, Therapeutic Exercises, Vestibular Rehabilitation Modalities Cold Pack/Ice Massage,Electric Stimulation,Hot Packs, Ultrasound Next Visit Focus/Plan Next Note Type Treatment Note Next Visit Plan Flexibility, LE strengthening, core strengthening, STM Plan of Care Dates Plan of Care Start Date 07/05/23 Plan of Care End Date 09/04/23 Electronically Signed by: Dante Restrepo, PT 07/06/23 5826 If you are in agreement with this Plan of Care, please return a signed and dated copy. I have reviewed this Plan of Care and certify that the skilled therapy services above are required to meet the patient?s needs. Physician Signature Date Printed Name and Credentials Clinical Instructor Signature Printed Name and Credentials
--- NOTE | 2023-07-05 10:30 | PT.OIE ---
Current Diagnoses Other chronic pain (07/05/23) Other intervertebral disc degeneration, lumbar region (07/05/23) Radiculopathy, lumbar region (07/05/23) Lumbago with sciatica, right side (07/05/23) Visit Care Team Role Provider Type Other Providers Specialty: Address: Phone: Fax: Email: Umair Flynn, Family Provider Non-Staff Primary Care Provider Specialty: Family Practice Address: [address] [place] [address], [id number] Email: Guillermo Mariee DO Attending Provider Non-Staff Referring Provider Specialty: Family Practice Address: [address] [place] [address], [id number] Email: Physical Therapy Initial Evaluation PT-OP-A Visit Information Start: 07/05/23 11:49 Freq: Status: Active Protocol: Document 07/05/23 09:45 DCW (Rec: 07/05/23 11:59 DCW [id number]) Out-Patient Physical Therapy Visit Information Visit Information Visit Type Initial Evaluation Visit Start Time 09:45 Visit Stop Time 10:30 Visit Number 1 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 Pt has a life-long history of scoliosis. Multiple years ago, she was experiencing right-sided radicular symptoms, and reports she was found to have calcium build-up in her lumbar discs. At that time, she could not stand up straight and ambulated with severe forward flexion. Pt underwent surgery at that time, and was almost immediately better, returning to normal function. Pt is now beginning to experience the same symptoms in her left side, and reports that she won't wait that long for surgery again, but does admit that if it is possible, she'd like to avoid surgical intervention. Mainly experiences pain in left posterior hip, which will occasionally radiate down her left lateral leg. Admits she was in severe pain last week, but is feeling much better today at the time of her evaluation. Pain is worse with spending more than 30 minutes either standing or sitting. PT-OP-C Subjective Start: 07/05/23 11:49 Freq: Status: Active Protocol: Document 07/05/23 09:45 DCW (Rec: 07/05/23 11:59 DCW [id number]) OP-PT Subjective Patient Comments Patient Comments I'm hoping to find a massage therapist in the area that can really dig in and break up some of these knots. Patient Questionnaires Oswestry Low Back Index Oswestry Score 17/50 = 34% Oswestry Impairment 20 to 39% Impaired (Score 20- 39) PT-OP-F Manual Assessment Start: 07/05/23 11:49 Freq: Status: Active Protocol: Document 07/05/23 09:45 DCW (Rec: 07/05/23 11:59 DCW [id number]) Manual Assessments Soft Tissue Assessment Soft Tissue Mobility Assessment Moderate tone with tenderness to palpation 2/4: Pain with wincing left TFL/ITB, Piriformis, Glutes, lumbar Paraspinals PT-OP-K Range of Motion Start: 07/05/23 11:49 Freq: Status: Active Protocol: Document 07/05/23 09:45 DCW (Rec: 07/06/23 15:17 DCW [id number]) Lumbar Spine Range of Motion Lumbar Spine Active Degrees Testing Position Standing Flexion 50 Extension 10 Lateral Flexion Left 56 Lateral Flexion Right 54 Comments Lateral flexion measured in cm from fingertips to floor PT-OP-L Special Tests Start: 07/05/23 11:49 Freq: Status: Active Protocol: Document 07/05/23 09:45 DCW (Rec: 07/06/23 15:17 DCW [id number]) Special Tests Lumbar Spine Special Tests Straight Leg Raise Test Results Hamstring tightness bilaterally Standing Flexion Test Results Negative Slump Test Results Negative A-P Shearing Test Results Negative Hip Special Tests Piriformis Test Results Positive Left Chely's Test Test Results Negative RICKY Test Results Negative PT-OP-M Strength Start: 07/05/23 11:49 Freq: Status: Active Protocol: Document 07/05/23 09:45 DCW (Rec: 07/06/23 15:17 DCW [id number]) Hip Strength Hip Manual Muscle Testing Right Flexion (L2) 4+ Good+ Abduction 4+ Good+ Adduction 4+ Good+ External Rotation 4+ Good+ Internal Rotation 4+ Good+ Left Flexion (L2) 4 Good Abduction 4 Good Adduction 4 Good External Rotation 4+ Good+ Internal Rotation 4+ Good+ Knee Strength Knee Manual Muscle Testing Right Flexion (S2) 4+ Good+ Extension (L3) 4+ Good+ Left Flexion (S2) 4+ Good+ Extension (L3) 4+ Good+ PT-OP-Q Treatments Start: 07/05/23 11:49 Freq: Status: Active Protocol: Document 07/05/23 09:45 DCW (Rec: 07/05/23 11:59 DCW [id number]) Therapeutic Exercises Supine Exercises Piriformis Supine Exercise Name Knee to opposite shoulder, Figure-4 Side left Sitting Exercises Piriformis Sitting Exercise Name Seated figure-4 Side left PT-OP-T Assessment and Plan Start: 07/05/23 11:49 Freq: Status: Active Protocol: Document 07/05/23 09:45 DCW (Rec: 07/06/23 15:24 DCW [id number]) Physical Therapy Assessment Rehab Potential Rehabilitation Potential Good Evaluation Complexity Number of Personal Factors/Comorbidities 1-2 Number of Body Systems Impaired 1-2 Clinical Presentation at Evaluation Stable Impairments Impairments Activity Tolerance,Functional Activities,Functional Mobility ,Pain,Posture,Strength,Tone Goals Two Impairment Pt unable to tolerate sitting or standing longer than 30' at a time Food Assembler Kitchen Goal (LTG) Pt to report ability to stand for one hour without an increase in back or left LE pain in order to return to prior functional levels. LTG Duration 09/04/23 One Impairment Pt does not have an appropriate home exercise program Short Term Goal (STG) Pt to be independent and compliant with an appropriate HEP STG Duration 08/05/23 Assessment Summary Assessment Pt presents with signs and symptoms consistent with referring diagnosis. Pt symptoms likely a product of degenerative changes in lumbar history, consistent with history of osteophytes in her interveterbral discs. Does exhibit increased tone and tenderness along lumbar paraspinals, as well as left- sided piriformis, TFL/ITB, hip flexors, and QL. Pt would likely benefit from skilled therapy focusing on improving hip, lumbar, and core musculature strength, improving muscle tone and flexibility, pain-control modalities, and improving pain -free lumbar ROM. Good initial response to stretching HEP, will likely do well with progression to strengthening and training with functional mobility. Physical Therapy Plan Frequency and Duration Frequency of Treatment 2x/Week Plan of Care Start Date 07/05/23 Plan of Care End Date 09/04/23 Therapeutic Interventions Therapeutic Interventions Home Exercise Program,Joint Mobilizations,Manual Therapy, Neuromuscular Re-education, Patient/Caregiver Education, Self-Care/Home Management,Soft Tissue Mobilization, Therapeutic Activities, Therapeutic Exercises, Vestibular Rehabilitation Modalities Cold Pack/Ice Massage,Electric Stimulation,Hot Packs, Ultrasound Next Visit Focus/Plan Next Note Type Treatment Note Next Visit Plan Flexibility, LE strengthening, core strengthening, STM
--- NOTE | 2023-07-07 10:32 | PT.OTN ---
Current Diagnoses Other chronic pain (07/07/23) Other intervertebral disc degeneration, lumbar region (07/07/23) Radiculopathy, lumbar region (07/07/23) Lumbago with sciatica, right side (07/07/23) Physical Therapy Treatment Note PT-OP-A Visit Information Start: 07/05/23 11:49 Freq: Status: Active Protocol: Document 07/07/23 09:45 DCW (Rec: 07/07/23 10:32 DCW [id number]) Out-Patient Physical Therapy Visit Information Visit Information Visit Type Treatment Note Visit Start Time 09:45 Visit Stop Time 10:30 Visit Number 2 Number of CLERK TELEGRAPH SERVICE Visits 0 Evaluation Information Evaluation Date 07/05/23 PT-OP-B Current Condition Start: 07/05/23 11:49 Freq: Status: Active Protocol: Document 07/05/23 09:45 DCW (Rec: 07/05/23 11:59 DCW [id number]) Current Condition History of Current Condition Onset Date Multi-year history Current Complaints Low back/left hip pain with left radicular symptoms History of Current Condition Pt is a 72 year old female presenting with a long- standing history of low back problems. Pt has a life-long history of scoliosis. Multiple years ago, she was experiencing right-sided radicular symptoms, and reports she was found to have calcium build-up in her lumbar discs. At that time, she could not stand up straight and ambulated with severe forward flexion. Pt underwent surgery at that time, and was almost immediately better, returning to normal function. Pt is now beginning to experience the same symptoms in her left side, and reports that she won't wait that long for surgery again, but does admit that if it is possible, she'd like to avoid surgical intervention. Mainly experiences pain in left posterior hip, which will occasionally radiate down her left lateral leg. Admits she was in severe pain last week, but is feeling much better today at the time of her evaluation. Pain is worse with spending more than 30 minutes either standing or sitting. PT-OP-C Subjective Start: 07/05/23 11:49 Freq: Status: Active Protocol: Document 07/07/23 09:45 DCW (Rec: 07/07/23 10:32 DCW [id number]) OP-PT Subjective Patient Comments Patient Comments I did maybe not the smartest thing, I spent 4-5 hours yesterday weeding my yard. PT-OP-F Manual Assessment Start: 07/05/23 11:49 Freq: Status: Active Protocol: Document 07/05/23 09:45 DCW (Rec: 07/05/23 11:59 DCW [id number]) Manual Assessments Soft Tissue Assessment Soft Tissue Mobility Assessment Moderate tone with tenderness to palpation 2/4: Pain with wincing left TFL/ITB, Piriformis, Glutes, lumbar Paraspinals PT-OP-K Range of Motion Start: 07/05/23 11:49 Freq: Status: Active Protocol: Document 07/05/23 09:45 DCW (Rec: 07/06/23 15:17 DCW [id number]) Lumbar Spine Range of Motion Lumbar Spine Active Degrees Testing Position Standing Flexion 50 Extension 10 Lateral Flexion Left 56 Lateral Flexion Right 54 Comments Lateral flexion measured in cm from fingertips to floor PT-OP-L Special Tests Start: 07/05/23 11:49 Freq: Status: Active Protocol: Document 07/05/23 09:45 DCW (Rec: 07/06/23 15:17 DCW [id number]) Special Tests Lumbar Spine Special Tests Straight Leg Raise Test Results Hamstring tightness bilaterally Standing Flexion Test Results Negative Slump Test Results Negative A-P Shearing Test Results Negative Hip Special Tests Piriformis Test Results Positive Left Chely's Test Test Results Negative RICKY Test Results Negative PT-OP-M Strength Start: 07/05/23 11:49 Freq: Status: Active Protocol: Document 07/05/23 09:45 DCW (Rec: 07/06/23 15:17 DCW [id number]) Hip Strength Hip Manual Muscle Testing Right Flexion (L2) 4+ Good+ Abduction 4+ Good+ Adduction 4+ Good+ External Rotation 4+ Good+ Internal Rotation 4+ Good+ Left Flexion (L2) 4 Good Abduction 4 Good Adduction 4 Good External Rotation 4+ Good+ Internal Rotation 4+ Good+ Knee Strength Knee Manual Muscle Testing Right Flexion (S2) 4+ Good+ Extension (L3) 4+ Good+ Left Flexion (S2) 4+ Good+ Extension (L3) 4+ Good+ PT-OP-Q Treatments Start: 07/05/23 11:49 Freq: Status: Active Protocol: Document 07/07/23 09:45 DCW (Rec: 07/07/23 10:32 DCW [id number]) Cardio Equipment Recumbent Elliptical (Biodex) Duration (Minutes) 5 Resistance 4 Seat Position 7 Gym Equipment Shuttle Recovery Unilateral Squats Resistance 50# Shuttle Recovery Platform Stable Bilateral Squats Resistance 87# Shuttle Recovery Platform Stable Therapeutic Ball LTR Exercise Details LTR Ball Size/Color Red - 55 Body Position Supine Therapeutic Exercises Supine Exercises Hamstring Supine Exercise Name HS stretch Side bilateral Piriformis Supine Exercise Name Knee to opposite shoulder Side bilateral Manual Therapy Treatment Soft Tissue Mobilization Piriformis Body Location B Piriformis Mobilization Type Strumming,Sustained Pressure Intensity/Depth Deep Body Position Sidelying Lumbar Body Location B Lumbar paraspinals Mobilization Type Strumming,Sustained Pressure Intensity/Depth Moderate Body Position Sidelying PT-OP-T Assessment and Plan Start: 07/05/23 11:49 Freq: Status: Active Protocol: Document 07/07/23 09:45 DCW (Rec: 07/07/23 10:32 DCW [id number]) Physical Therapy Assessment Goals Two Impairment Pt unable to tolerate sitting or standing longer than 30' at a time Prison Goal (LTG) Pt to report ability to stand for one hour without an increase in back or left LE pain in order to return to prior functional levels. LTG Duration 09/04/23 One Impairment Pt does not have an appropriate home exercise program Short Term Goal (STG) Pt to be independent and compliant with an appropriate HEP STG Duration 08/05/23 Assessment Summary Assessment Good response to activity today, focused on bilateral STM and stretching today due to increased tenderness following a day of weeding yesterday. Review stretching for HEP. Next visit, focus on hip/core strengthening, as well as continued stretching/ flexibility Physical Therapy Plan Frequency and Duration Frequency of Treatment 2x/Week Plan of Care Start Date 07/05/23 Plan of Care End Date 09/04/23 Therapeutic Interventions Therapeutic Interventions Home Exercise Program,Joint Mobilizations,Manual Therapy, Neuromuscular Re-education, Patient/Caregiver Education, Self-Care/Home Management,Soft Tissue Mobilization, Therapeutic Activities, Therapeutic Exercises, Vestibular Rehabilitation Modalities Cold Pack/Ice Massage,Electric Stimulation,Hot Packs, Ultrasound Next Visit Focus/Plan Next Note Type Treatment Note Next Visit Plan Flexibility, LE strengthening, core strengthening, STM
--- NOTE | 2023-07-19 12:29 | PT.OTN ---
Current Diagnoses Other chronic pain (07/19/23) Other intervertebral disc degeneration, lumbar region (07/19/23) Radiculopathy, lumbar region (07/19/23) Lumbago with sciatica, right side (07/19/23) Physical Therapy Treatment Note PT-OP-A Visit Information Start: 07/05/23 11:49 Freq: Status: Active Protocol: Document 07/19/23 08:23 AB (Rec: 07/19/23 10:32 AB [id number]) Out-Patient Physical Therapy Visit Information Visit Information Visit Type Treatment Note Visit Start Time 09:48 Visit Stop Time 10:29 Visit Number 3 Number of LIGHTNING ROD ERECTOR Visits 1 Evaluation Information Evaluation Date 07/05/23 Precautions Precautions Patient reports she has been bad the past 2 days, did some weeding, comments she did the stretches and it helped is better today. PT-OP-B Current Condition Start: 07/05/23 11:49 Freq: Status: Active Protocol: Document 07/05/23 09:45 DCW (Rec: 07/05/23 11:59 DCW [id number]) Current Condition History of Current Condition Onset Date Multi-year history Current Complaints Low back/left hip pain with left radicular symptoms History of Current Condition Pt is a 72 year old female presenting with a long- standing history of low back problems. Pt has a life-long history of scoliosis. Multiple years ago, she was experiencing right-sided radicular symptoms, and reports she was found to have calcium build-up in her lumbar discs. At that time, she could not stand up straight and ambulated with severe forward flexion. Pt underwent surgery at that time, and was almost immediately better, returning to normal function. Pt is now beginning to experience the same symptoms in her left side, and reports that she won't wait that long for surgery again, but does admit that if it is possible, she'd like to avoid surgical intervention. Mainly experiences pain in left posterior hip, which will occasionally radiate down her left lateral leg. Admits she was in severe pain last week, but is feeling much better today at the time of her evaluation. Pain is worse with spending more than 30 minutes either standing or sitting. PT-OP-C Subjective Start: 07/05/23 11:49 Freq: Status: Active Protocol: Document 07/07/23 09:45 DCW (Rec: 07/07/23 10:32 DCW [id number]) OP-PT Subjective Patient Comments Patient Comments I did maybe not the smartest thing, I spent 4-5 hours yesterday weeding my yard. PT-OP-F Manual Assessment Start: 07/05/23 11:49 Freq: Status: Active Protocol: Document 07/05/23 09:45 DCW (Rec: 07/05/23 11:59 DCW [id number]) Manual Assessments Soft Tissue Assessment Soft Tissue Mobility Assessment Moderate tone with tenderness to palpation 2/4: Pain with wincing left TFL/ITB, Piriformis, Glutes, lumbar Paraspinals PT-OP-K Range of Motion Start: 07/05/23 11:49 Freq: Status: Active Protocol: Document 07/05/23 09:45 DCW (Rec: 07/06/23 15:17 DCW [id number]) Lumbar Spine Range of Motion Lumbar Spine Active Degrees Testing Position Standing Flexion 50 Extension 10 Lateral Flexion Left 56 Lateral Flexion Right 54 Comments Lateral flexion measured in cm from fingertips to floor PT-OP-L Special Tests Start: 07/05/23 11:49 Freq: Status: Active Protocol: Document 07/05/23 09:45 DCW (Rec: 07/06/23 15:17 DCW [id number]) Special Tests Lumbar Spine Special Tests Straight Leg Raise Test Results Hamstring tightness bilaterally Standing Flexion Test Results Negative Slump Test Results Negative A-P Shearing Test Results Negative Hip Special Tests Piriformis Test Results Positive Left Chely's Test Test Results Negative RICKY Test Results Negative PT-OP-M Strength Start: 07/05/23 11:49 Freq: Status: Active Protocol: Document 07/05/23 09:45 DCW (Rec: 07/06/23 15:17 DCW [id number]) Hip Strength Hip Manual Muscle Testing Right Flexion (L2) 4+ Good+ Abduction 4+ Good+ Adduction 4+ Good+ External Rotation 4+ Good+ Internal Rotation 4+ Good+ Left Flexion (L2) 4 Good Abduction 4 Good Adduction 4 Good External Rotation 4+ Good+ Internal Rotation 4+ Good+ Knee Strength Knee Manual Muscle Testing Right Flexion (S2) 4+ Good+ Extension (L3) 4+ Good+ Left Flexion (S2) 4+ Good+ Extension (L3) 4+ Good+ PT-OP-Q Treatments Start: 07/05/23 11:49 Freq: Status: Active Protocol: Document 07/19/23 08:23 AB (Rec: 07/19/23 10:32 AB [id number]) Therapeutic Exercises Supine Exercises Hamstring Supine Exercise Name HS stretch Side bilateral Piriformis Supine Exercise Name Knee to opposite shoulder Side bilateral Sitting Exercises seated hip abduction with band Side bilateral Resistance level 3 band Equipment Used 1 X one minute hold Standing Exercises sit to stand Resistance level 3 band Reps/Minutes 2X10 Comments Patient ed use of self tactile cues for hip hinge Manual Therapy Treatment Soft Tissue Mobilization right hamstring Mobilization Type Cross-Friction,Rolling Intensity/Depth Moderate Body Position Sidelying Comments Prior to stretch monitored for pain Piriformis Body Location B Piriformis Mobilization Type Cross-Friction,Rolling Intensity/Depth Deep Body Position Sidelying Lumbar Body Location B Lumbar paraspinals Mobilization Type Sustained Pressure Intensity/Depth Moderate Body Position Sidelying Manual Techniques pubic shotgun and MET for right AI left PI Reps/Duration 6X6 sec each PT-OP-T Assessment and Plan Start: 07/05/23 11:49 Freq: Status: Active Protocol: Document 07/19/23 08:23 AB (Rec: 07/19/23 10:32 AB [id number]) Physical Therapy Assessment Goals Two Impairment Pt unable to tolerate sitting or standing longer than 30' at a time Electrician Outside Goal (LTG) Pt to report ability to stand for one hour without an increase in back or left LE pain in order to return to prior functional levels. LTG Duration 09/04/23 One Impairment Pt does not have an appropriate home exercise program Short Term Goal (STG) Pt to be independent and compliant with an appropriate HEP STG Duration 08/05/23 Assessment Summary Assessment Patient reports a little more soreness SI area end of session, able to perform sit to stand with improved hip hinge and decreased velocity during sit to stand Physical Therapy Plan Frequency and Duration Frequency of Treatment 2x/Week Plan of Care Start Date 07/05/23 Plan of Care End Date 09/04/23 Next Visit Focus/Plan Next Note Type Treatment Note Next Visit Plan Flexibility, LE strengthening, core strengthening, STM
--- NOTE | 2023-07-26 10:28 | PT.OTN ---
Current Diagnoses Other chronic pain (07/26/23) Other intervertebral disc degeneration, lumbar region (07/26/23) Radiculopathy, lumbar region (07/26/23) Lumbago with sciatica, right side (07/26/23) Physical Therapy Treatment Note PT-OP-A Visit Information Start: 07/05/23 11:49 Freq: Status: Active Protocol: Document 07/26/23 09:45 DCW (Rec: 07/26/23 10:28 DCW [id number]) Out-Patient Physical Therapy Visit Information Visit Information Visit Type Treatment Note Visit Start Time 09:45 Visit Stop Time 10:30 Visit Number 4 Number of SENIOR SQL SERVER DATABASE DEVELOPER Visits 0 Evaluation Information Evaluation Date 07/05/23 PT-OP-B Current Condition Start: 07/05/23 11:49 Freq: Status: Active Protocol: Document 07/05/23 09:45 DCW (Rec: 07/05/23 11:59 DCW [id number]) Current Condition History of Current Condition Onset Date Multi-year history Current Complaints Low back/left hip pain with left radicular symptoms History of Current Condition Pt is a 72 year old female presenting with a long- standing history of low back problems. Pt has a life-long history of scoliosis. Multiple years ago, she was experiencing right-sided radicular symptoms, and reports she was found to have calcium build-up in her lumbar discs. At that time, she could not stand up straight and ambulated with severe forward flexion. Pt underwent surgery at that time, and was almost immediately better, returning to normal function. Pt is now beginning to experience the same symptoms in her left side, and reports that she won't wait that long for surgery again, but does admit that if it is possible, she'd like to avoid surgical intervention. Mainly experiences pain in left posterior hip, which will occasionally radiate down her left lateral leg. Admits she was in severe pain last week, but is feeling much better today at the time of her evaluation. Pain is worse with spending more than 30 minutes either standing or sitting. PT-OP-C Subjective Start: 07/05/23 11:49 Freq: Status: Active Protocol: Document 07/26/23 09:45 DCW (Rec: 07/26/23 10:28 DCW [id number]) OP-PT Subjective Patient Comments Patient Comments Pt reports that the night before last, she was having a lot of pain all of a sudden. Last night, slept with a pillow under my knees, which was a lot better. PT-OP-F Manual Assessment Start: 07/05/23 11:49 Freq: Status: Active Protocol: Document 07/05/23 09:45 DCW (Rec: 07/05/23 11:59 DCW [id number]) Manual Assessments Soft Tissue Assessment Soft Tissue Mobility Assessment Moderate tone with tenderness to palpation 2/4: Pain with wincing left TFL/ITB, Piriformis, Glutes, lumbar Paraspinals PT-OP-K Range of Motion Start: 07/05/23 11:49 Freq: Status: Active Protocol: Document 07/05/23 09:45 DCW (Rec: 07/06/23 15:17 DCW [id number]) Lumbar Spine Range of Motion Lumbar Spine Active Degrees Testing Position Standing Flexion 50 Extension 10 Lateral Flexion Left 56 Lateral Flexion Right 54 Comments Lateral flexion measured in cm from fingertips to floor PT-OP-L Special Tests Start: 07/05/23 11:49 Freq: Status: Active Protocol: Document 07/05/23 09:45 DCW (Rec: 07/06/23 15:17 DCW [id number]) Special Tests Lumbar Spine Special Tests Straight Leg Raise Test Results Hamstring tightness bilaterally Standing Flexion Test Results Negative Slump Test Results Negative A-P Shearing Test Results Negative Hip Special Tests Piriformis Test Results Positive Left Chely's Test Test Results Negative RICKY Test Results Negative PT-OP-M Strength Start: 07/05/23 11:49 Freq: Status: Active Protocol: Document 07/05/23 09:45 DCW (Rec: 07/06/23 15:17 DCW [id number]) Hip Strength Hip Manual Muscle Testing Right Flexion (L2) 4+ Good+ Abduction 4+ Good+ Adduction 4+ Good+ External Rotation 4+ Good+ Internal Rotation 4+ Good+ Left Flexion (L2) 4 Good Abduction 4 Good Adduction 4 Good External Rotation 4+ Good+ Internal Rotation 4+ Good+ Knee Strength Knee Manual Muscle Testing Right Flexion (S2) 4+ Good+ Extension (L3) 4+ Good+ Left Flexion (S2) 4+ Good+ Extension (L3) 4+ Good+ PT-OP-Q Treatments Start: 07/05/23 11:49 Freq: Status: Active Protocol: Document 07/26/23 09:45 DCW (Rec: 07/26/23 10:28 DCW [id number]) Gym Equipment Shuttle Recovery Unilateral Squats Resistance 50# Shuttle Recovery Platform Stable Bilateral Squats Resistance 87# Shuttle Recovery Platform Stable Therapeutic Ball LTR Exercise Details LTR Ball Size/Color Red - 55 Body Position Supine Therapeutic Exercises Supine Exercises Air Bike Supine Exercise Name Abdominal bracing /c Air cycle SLR Supine Exercise Name Abdominal bracing /c SLR Marching Supine Exercise Name Abdominal bracing /c marching PPT Supine Exercise Name PPT /c abdominal bracing Hamstring Supine Exercise Name HS stretch Side bilateral Piriformis Supine Exercise Name Knee to opposite shoulder Side bilateral Other Exercises Resisted Ambulation Other Exercise Name Resisted side-stepping Resistance Green Manual Therapy Treatment Soft Tissue Mobilization right hamstring Mobilization Type Cross-Friction,Rolling Intensity/Depth Moderate Body Position Sidelying Comments Prior to stretch monitored for pain Piriformis Body Location B Piriformis Mobilization Type Cross-Friction,Rolling Intensity/Depth Deep Body Position Sidelying Lumbar Body Location B Lumbar paraspinals Mobilization Type Sustained Pressure Intensity/Depth Moderate Body Position Sidelying PT-OP-T Assessment and Plan Start: 07/05/23 11:49 Freq: Status: Active Protocol: Document 07/26/23 09:45 DCW (Rec: 07/26/23 10:28 DCW [id number]) Physical Therapy Assessment Impairments Impairments Activity Tolerance,Functional Activities,Functional Mobility ,Pain,Posture,Strength,Tone Goals Two Impairment Pt unable to tolerate sitting or standing longer than 30' at a time Airport Location Manager Goal (LTG) Pt to report ability to stand for one hour without an increase in back or left LE pain in order to return to prior functional levels. LTG Duration 09/04/23 One Impairment Pt does not have an appropriate home exercise program Short Term Goal (STG) Pt to be independent and compliant with an appropriate HEP STG Duration 08/05/23 Assessment Summary Assessment Pt feeling better following treatment session today, good tolerance to supine abdominal bracing exercises. Left posterior hip/hamstring was exhibiting much more tone and resistance to stretch today. Physical Therapy Plan Frequency and Duration Frequency of Treatment 2x/Week Plan of Care Start Date 07/05/23 Plan of Care End Date 09/04/23 Therapeutic Interventions Therapeutic Interventions Home Exercise Program,Joint Mobilizations,Manual Therapy, Neuromuscular Re-education, Patient/Caregiver Education, Self-Care/Home Management,Soft Tissue Mobilization, Therapeutic Activities, Therapeutic Exercises, Vestibular Rehabilitation Modalities Cold Pack/Ice Massage,Electric Stimulation,Hot Packs, Ultrasound Next Visit Focus/Plan Next Note Type Treatment Note Next Visit Plan Flexibility, LE strengthening, core strengthening, STM
--- NOTE | 2023-07-28 11:21 | PT.OTN ---
Current Diagnoses Other chronic pain (07/28/23) Other intervertebral disc degeneration, lumbar region (07/28/23) Radiculopathy, lumbar region (07/28/23) Lumbago with sciatica, right side (07/28/23) Physical Therapy Treatment Note PT-OP-A Visit Information Start: 07/05/23 11:49 Freq: Status: Active Protocol: Document 07/28/23 08:04 AB (Rec: 07/28/23 11:21 AB [id number]) Out-Patient Physical Therapy Visit Information Visit Information Visit Type Treatment Note Visit Start Time 09:47 Visit Stop Time 10:27 Visit Number 5 Number of OFFICE MANAGER EXECUTIVE ASSISTANT Visits 1 Evaluation Information Evaluation Date 07/05/23 PT-OP-B Current Condition Start: 07/05/23 11:49 Freq: Status: Active Protocol: Document 07/05/23 09:45 DCW (Rec: 07/05/23 11:59 DCW [id number]) Current Condition History of Current Condition Onset Date Multi-year history Current Complaints Low back/left hip pain with left radicular symptoms History of Current Condition Pt is a 72 year old female presenting with a long- standing history of low back problems. Pt has a life-long history of scoliosis. Multiple years ago, she was experiencing right-sided radicular symptoms, and reports she was found to have calcium build-up in her lumbar discs. At that time, she could not stand up straight and ambulated with severe forward flexion. Pt underwent surgery at that time, and was almost immediately better, returning to normal function. Pt is now beginning to experience the same symptoms in her left side, and reports that she won't wait that long for surgery again, but does admit that if it is possible, she'd like to avoid surgical intervention. Mainly experiences pain in left posterior hip, which will occasionally radiate down her left lateral leg. Admits she was in severe pain last week, but is feeling much better today at the time of her evaluation. Pain is worse with spending more than 30 minutes either standing or sitting. PT-OP-C Subjective Start: 07/05/23 11:49 Freq: Status: Active Protocol: Document 07/28/23 08:04 AB (Rec: 07/28/23 11:21 AB [id number]) OP-PT Subjective Patient Comments Patient Comments Patient reports the pain is running right down the left side/leg, reports she woke up like this a few days ago. Patient reports she has an appointment with next Monday, patient comments she suspects sciatica. PT-OP-F Manual Assessment Start: 07/05/23 11:49 Freq: Status: Active Protocol: Document 07/05/23 09:45 DCW (Rec: 07/05/23 11:59 DCW [id number]) Manual Assessments Soft Tissue Assessment Soft Tissue Mobility Assessment Moderate tone with tenderness to palpation 2/4: Pain with wincing left TFL/ITB, Piriformis, Glutes, lumbar Paraspinals PT-OP-K Range of Motion Start: 07/05/23 11:49 Freq: Status: Active Protocol: Document 07/05/23 09:45 DCW (Rec: 07/06/23 15:17 DCW [id number]) Lumbar Spine Range of Motion Lumbar Spine Active Degrees Testing Position Standing Flexion 50 Extension 10 Lateral Flexion Left 56 Lateral Flexion Right 54 Comments Lateral flexion measured in cm from fingertips to floor PT-OP-L Special Tests Start: 07/05/23 11:49 Freq: Status: Active Protocol: Document 07/05/23 09:45 DCW (Rec: 07/06/23 15:17 DCW [id number]) Special Tests Lumbar Spine Special Tests Straight Leg Raise Test Results Hamstring tightness bilaterally Standing Flexion Test Results Negative Slump Test Results Negative A-P Shearing Test Results Negative Hip Special Tests Piriformis Test Results Positive Left Chely's Test Test Results Negative RICKY Test Results Negative PT-OP-M Strength Start: 07/05/23 11:49 Freq: Status: Active Protocol: Document 07/05/23 09:45 DCW (Rec: 07/06/23 15:17 DCW [id number]) Hip Strength Hip Manual Muscle Testing Right Flexion (L2) 4+ Good+ Abduction 4+ Good+ Adduction 4+ Good+ External Rotation 4+ Good+ Internal Rotation 4+ Good+ Left Flexion (L2) 4 Good Abduction 4 Good Adduction 4 Good External Rotation 4+ Good+ Internal Rotation 4+ Good+ Knee Strength Knee Manual Muscle Testing Right Flexion (S2) 4+ Good+ Extension (L3) 4+ Good+ Left Flexion (S2) 4+ Good+ Extension (L3) 4+ Good+ PT-OP-Q Treatments Start: 07/05/23 11:49 Freq: Status: Active Protocol: Document 07/28/23 08:04 AB (Rec: 07/28/23 11:21 AB [id number]) Therapeutic Exercises Supine Exercises abdominal bracing with heel slide Side bilateral Reps/Minutes X10 each LE Comments Verbal cues to brace as LE slides away from core LTR Side bilateral Reps/Minutes one min Comments Verbal cues to perform in pain free range abdominal bracing with LE extension Side bilateral Reps/Minutes X4 each side Comments Verbal cues to brace as LE moves away from core, not velma inc Ant pelv tilt bent knee fall out Side bilateral Equipment Used 10 X each LE Comments verbal cues to brace as LE moves away from core Piriformis Supine Exercise Name Knee to opposite shoulder Side bilateral Reps/Minutes 60 seconds X 2 each LE Standing Exercises Pallof press Equipment Used level 3 band Reps/Minutes X3 left side X 2 right Comments not velma Manual Therapy Treatment Soft Tissue Mobilization Piriformis Body Location B Piriformis Mobilization Type Cross-Friction,Rolling Intensity/Depth Deep Body Position Sidelying Lumbar Body Location B Lumbar paraspinals Mobilization Type Sustained Pressure Intensity/Depth Moderate Body Position Sidelying PT-OP-T Assessment and Plan Start: 07/05/23 11:49 Freq: Status: Active Protocol: Document 07/28/23 08:04 AB (Rec: 07/28/23 11:21 AB [id number]) Physical Therapy Assessment Goals Two Impairment Pt unable to tolerate sitting or standing longer than 30' at a time Dining Host Goal (LTG) Pt to report ability to stand for one hour without an increase in back or left LE pain in order to return to prior functional levels. LTG Duration 09/04/23 One Impairment Pt does not have an appropriate home exercise program Short Term Goal (STG) Pt to be independent and compliant with an appropriate HEP STG Duration 08/05/23 Assessment Summary Assessment Patient reports feeling a little better end of session /10 vs 01/01 and ambulates out of sessio with a less antalgic pattern without device. Physical Therapy Plan Frequency and Duration Frequency of Treatment 2x/Week Plan of Care Start Date 07/05/23 Plan of Care End Date 09/04/23 Next Visit Focus/Plan Next Note Type Treatment Note Next Visit Plan Flexibility, LE strengthening, core strengthening, STM, possibly sidelying hip abduction with band vs seated, revisit pallof press with level one band
--- NOTE | 2024-06-11 16:38 | PT.OPDS ---
Current Diagnoses Other chronic pain (07/28/23) Other intervertebral disc degeneration, lumbar region (07/28/23) Radiculopathy, lumbar region (07/28/23) Lumbago with sciatica, right side (07/28/23) Visit Care Team Role Provider Type Other Providers Specialty: Address: Phone: Fax: Email: Umair Flynn, Family Provider Non-Staff Primary Care Provider Specialty: Family Practice Address: [address] [place] [address], [id number] Email: Guillermo Mariee DO Attending Provider Non-Staff Referring Provider Specialty: Family Practice Address: [address] [place] [address], [id number] Email: Visit Number Visit Number 5 Discharge Summary PT-OP-B Current Condition Start: 07/05/23 11:49 Freq: Status: Active Protocol: Document 07/05/23 09:45 DCW (Rec: 07/05/23 11:59 DCW [id number]) Current Condition History of Current Condition Onset Date Multi-year history Current Complaints Low back/left hip pain with left radicular symptoms History of Current Condition Pt is a 72 year old female presenting with a long- standing history of low back problems. Pt has a life-long history of scoliosis. Multiple years ago, she was experiencing right-sided radicular symptoms, and reports she was found to have calcium build-up in her lumbar discs. At that time, she could not stand up straight and ambulated with severe forward flexion. Pt underwent surgery at that time, and was almost immediately better, returning to normal function. Pt is now beginning to experience the same symptoms in her left side, and reports that she won't wait that long for surgery again, but does admit that if it is possible, she'd like to avoid surgical intervention. Mainly experiences pain in left posterior hip, which will occasionally radiate down her left lateral leg. Admits she was in severe pain last week, but is feeling much better today at the time of her evaluation. Pain is worse with spending more than 30 minutes either standing or sitting. PT-OP-C Subjective Start: 07/05/23 11:49 Freq: Status: Active Protocol: Document 07/28/23 08:04 AB (Rec: 07/28/23 11:21 AB [id number]) OP-PT Subjective Patient Comments Patient Comments Patient reports the pain is running right down the left side/leg, reports she woke up like this a few days ago. Patient reports she has an appointment with next Monday, patient comments she suspects sciatica. PT-OP-F Manual Assessment Start: 07/05/23 11:49 Freq: Status: Active Protocol: Document 07/05/23 09:45 DCW (Rec: 07/05/23 11:59 DCW [id number]) Manual Assessments Soft Tissue Assessment Soft Tissue Mobility Assessment Moderate tone with tenderness to palpation 2/4: Pain with wincing left TFL/ITB, Piriformis, Glutes, lumbar Paraspinals PT-OP-K Range of Motion Start: 07/05/23 11:49 Freq: Status: Active Protocol: Document 07/05/23 09:45 DCW (Rec: 07/06/23 15:17 DCW [id number]) Lumbar Spine Range of Motion Lumbar Spine Active Degrees Testing Position Standing Flexion 50 Extension 10 Lateral Flexion Left 56 Lateral Flexion Right 54 Comments Lateral flexion measured in cm from fingertips to floor PT-OP-L Special Tests Start: 07/05/23 11:49 Freq: Status: Active Protocol: Document 07/05/23 09:45 DCW (Rec: 07/06/23 15:17 DCW [id number]) Special Tests Lumbar Spine Special Tests Straight Leg Raise Test Results Hamstring tightness bilaterally Standing Flexion Test Results Negative Slump Test Results Negative A-P Shearing Test Results Negative Hip Special Tests Piriformis Test Results Positive Left Chely's Test Test Results Negative RICKY Test Results Negative PT-OP-M Strength Start: 07/05/23 11:49 Freq: Status: Active Protocol: Document 07/05/23 09:45 DCW (Rec: 07/06/23 15:17 DCW [id number]) Hip Strength Hip Manual Muscle Testing Right Flexion (L2) 4+ Good+ Abduction 4+ Good+ Adduction 4+ Good+ External Rotation 4+ Good+ Internal Rotation 4+ Good+ Left Flexion (L2) 4 Good Abduction 4 Good Adduction 4 Good External Rotation 4+ Good+ Internal Rotation 4+ Good+ Knee Strength Knee Manual Muscle Testing Right Flexion (S2) 4+ Good+ Extension (L3) 4+ Good+ Left Flexion (S2) 4+ Good+ Extension (L3) 4+ Good+ PT-OP-T Assessment and Plan Start: 07/05/23 11:49 Freq: Status: Active Protocol: Document 06/11/24 16:38 DCW (Rec: 06/11/24 16:38 DCW [id number]) Physical Therapy Assessment Assessment Summary Assessment Pt has not been seen for more than 10 months. POC has since . Pt will be discharged from skilled therapy at this time, and will require a new referral in order to return. Physical Therapy Plan Discharge Physical Therapy Discharge Reasons No Longer Attending PT
== END 2024-06-21 08:23 | disposition home or self-care (01) ==
LOC: PHYS 09:45
PROVIDERS: Family Provider General Practice; PCP General Practice; Referring Provider Family Medicine; Visit Provider Family Medicine
DX: M54.41 Lumbago with sciatica, right side (principal); G89.29 Other chronic pain; M51.36 Other intervertebral disc degeneration, lumbar region; M54.16 Radiculopathy, lumbar region
CPT/HCPCS: 97110; 97140; 97161

== ENCOUNTER → 2023-08-04 18:32 | Outpatient (CLI) | payer MEDICARE, SELFPAY ==
--- NOTE | 2023-08-04 | DI.MRI.S_ITS ---
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 In cases with scoliosis, additional coronal T2 fast spin echo may be performed. COMPARISON: [facility] Outside Film, MR, MR LUMBAR SPINE WITHOUT CONTRAST, 10/23/2013, 14:20. [facility] Outside Film, CR, XR LUMBAR SPINE 2 OR 3 VIEWS, 04/18/2023, 9:23. FINDINGS: Image quality: Excellent. Alignment and Curvature: Mild levocurvature centered at L3. Bone Marrow: Marrow is of normal overall signal. No acute vertebral body compression fractures. Spinal Cord: Conus medullaris terminates at the L1-L2 level. Visualized cord demonstrates normal signal and size. Paraspinous Soft Tissues: No paravertebral masses. T12-L1: Mild disc bulge. No canal stenosis or foraminal stenosis. L1-L2: Mild disc bulge. Facet hypertrophy. No canal stenosis or foraminal stenosis. L2-L3: Development of disc bulge. Increase in facet hypertrophy. Development of borderline canal stenosis. Increase in bilateral foraminal disc bulges. [id number] bilateral foraminal stenosis. L3-L4: Increase in disc height loss and increase in disc bulge. Increase in facet hypertrophy. Moderate canal stenosis. Moderate to severe right foraminal narrowing, increased, with a mild degree of right foraminal L3 nerve root compression. Moderate left foraminal narrowing with flattening deformity on the exiting left L3 nerve root. L4-L5: Disc bulge. Prominent facet and ligament hypertrophy, as before. Slight interval increase in canal stenosis. This is moderate. 26 of axial T2 series 5. Development of left foraminal annulus tear plus foraminal disc protrusion with moderate to severe left foraminal narrowing and a degree of left foraminal L4 nerve root impingement. Reference sagittal T2 images 13 and 14 of series 2. There is moderate right foraminal narrowing with flattening deformity on the exiting right L4 nerve root. L5-S1: Again noted is disc bulge and quite prominent facet hypertrophy. Mild canal stenosis. [id number] bilateral foraminal stenosis. IMPRESSION: 1. Again noted is underlying relatively advanced multilevel facet arthropathy. 2. Interval increase in canal stenosis at L3-L4 and L4-L5, moderate at both levels. There is also mild canal stenosis at L5-S1. 3. At L4-L5, there is now annulus tear plus left foraminal disc protrusion with moderate to severe left foraminal narrowing and left foraminal L4 nerve root impingement. Dictated by: Nelson Bobby M.D. on 08/07/2023 at 15:06 Approved by: Nelson Bobby M.D. on 08/07/2023 at 15:16
== END ==
LOC: MRI 18:34
PROVIDERS: Family Provider General Practice; PCP General Practice; Referring Provider Orthopaedic Surgery Orthopaedic Surgery of the Spine; Visit Provider Orthopaedic Surgery Orthopaedic Surgery of the Spine
DX: M96.1 Postlaminectomy syndrome, not elsewhere classified (principal); M47.816 Spondylosis without myelopathy or radiculopathy, lumbar region; M47.817 Spondylosis without myelopathy or radiculopathy, lumbosacral region; M48.061 Spinal stenosis, lumbar region without neurogenic claudication; M48.07 Spinal stenosis, lumbosacral region; M51.26 Other intervertebral disc displacement, lumbar region
CPT/HCPCS: 72148

== ENCOUNTER → 2024-02-28 | Outpatient (CLI) | payer MEDICARE, SELFPAY ==
--- NOTE | 2024-02-28 09:11 | DI.MG.S_ITS ---
BILATERAL DIGITAL SCREENING MAMMOGRAM 3D/2D WITH CAD: 02/28/2024 CLINICAL: Routine screening. Family history of breast cancer. No prior exams were available for comparison. There are scattered areas of fibroglandular density (category b / 25%-50% glandular tissue). Current study was also evaluated with a Computer Aided Detection (CAD) system. No significant masses, calcifications, or other findings are seen in either breast. IMPRESSION: NEGATIVE There is no mammographic evidence of malignancy. A 1 year screening mammogram is recommended. Based on the Tyrer Cuzick model (a risk assessment model) the patient's lifetime risk is 6.9% and her 10 year risk is 5.2%. According to the ACR, ACS, and NCCN guidelines, an annual breast MRI exam along with mammogram is recommended if the patient's lifetime risk is 20% or greater. This exam was interpreted at Station ID: [id number]. NOTE: For mammograms, a report in lay terms will be sent to the patient. Approximately 15% of breast malignancies will not be visualized mammographically. In the management of a palpable breast mass, a negative mammogram must not discourage biopsy of a clinically suspicious lesion. Electronically Signed By: Yoseph fuller/quinn:03/06/2024 17:53:46 letter sent: Normal Exam ACR BI-RADS Category 1: Negative
== END ==
PROVIDERS: Family Provider General Practice; Referring Provider Specialist; Visit Provider Specialist
DX: Z12.31 Encounter for screening mammogram for malignant neoplasm of breast (principal); Z80.3 Family history of malignant neoplasm of breast
CPT/HCPCS: 77063; 77067

== ENCOUNTER → 2024-06-26 08:58 | Outpatient (CLI) | payer MEDICARE, SELFPAY | PROVIDERS: Family Provider General Practice; PCP Family Medicine; Referring Provider Internal Medicine Pulmonary Disease; Visit Provider Internal Medicine Pulmonary Disease | DX: J47.9 Bronchiectasis, uncomplicated (principal) | CPT/HCPCS: 87116; 87206 ==